=== PATIENT | female | born 1990 | race Caucasian/White ===

== ENCOUNTER 2021-07-24 10:04 | Emergency (ER) | payer OTHER ==
[~2021-07-24] VITALS: Ht 162.6 cm; Wt 59.1 kg
--- NOTE | 2021-07-24 10:05 | NUR ---
BIBA TO BED 05
--- NOTE | 2021-07-24 10:10 | NUR ---
PT IN GAWN AND IN BED.
--- NOTE | 2021-07-24 10:18 | NUR ---
PT WALKED TO THE BATHROOM FOR URINE SAMPLE.
[2021-07-24 10:35] VITALS: BP 114/73
[2021-07-24] MEDS ORDERED: ACETAMINOPHEN EXTRA STRENGTH 500 MG TAB PO ONE (10:35)
--- NOTE | 2021-07-24 10:40 | NUR ---
PT BIB [facility] C/O PT FOUND IN UNK PERSON BACK YARD STS TO O/PD S/P 5150 " GET THE FUCK AWAY, I'M GOING TO KILL MYSELF." NO TRAUMA NOTED. EMS STS PT IS HOMELESS. PT DENIES ANY PAIN. ER MD TO EUNICE. PT DENIES N/V/D; SKIN IS INTACT, PINK/WARM/DRY; AAOX4, PERRL, WITH EVEN AND STEADY GAIT; LUNGS CLEAR BL, BREATHING UNLABORED; HR EVEN AND REGULAR, BL PERIPHERAL PULSES PRESENT; BS ACTIVE X4, NO TENDERNESS TO PALPATION. PT DENIES ANY FEVER, CP, SOB, OR COUGH AT THIS TIME; PT STATES 0/10 PAIN AT THIS TIME; VSS; PATIENT POSITIONED FOR COMFORT; HOB ELEVATED; BEDRAILS UP X2; BED DOWN.
[2021-07-24 11:31] LABS: APPEARANCE,URINE CLEAR (CLEAR); BILIRUBIN,URINE NEGATIVE (NEGATIVE); COLOR,URINE YELLOW (YELLOW); LEUKOCYTE ESTERASE ,URINE NEGATIVE (NEGATIVE); NITRITE, URINE NEGATIVE (NEGATIVE); UGLUCOSE NEGATIVE (NEGATIVE)
[2021-07-24 11:36] LABS: BASOPHILS % (AUTO) 0.7 % (0.0-2.0); EOSINOPHILS # (AUTO) 0.1 K/uL (0-0.4); EOSINOPHILS % (AUTO) 1.3 % (0.0-4.0); HEMATOCRIT 36.6 % (36-48); HEMOGLOBIN 12.6 g/dL (12.0-16.0); LYMPHOCYTES # (AUTO) 1.1 K/uL (2.5-16.5); LYMPHOCYTES % (AUTO) 18.1 % (20.5-51.1); MEAN CORPUSCULAR HEMOGLOBIN 33 pg (27-31); MEAN CORPUSCULAR HGB CONC 35 g/dL (33-37); MEAN CORPUSCULAR VOLUME 94.4 fL (80-94); MONOCYTES # (AUTO) 0.8 K/uL (0.8-1.0); NEUTROPHILS % (AUTO) 66.9 % (42.2-75.2); PLATELET COUNT (AUTO) 297 K/uL (140-450); RED BLOOD CELL COUNT(AUTO) 3.87 MIL/uL (4.20-5.40); RED CELL DISTRIBUTION WIDTH 12.2 % (11.6-13.7)
[2021-07-24 11:45] LABS: BLOOD, URINE TRACE (NEGATIVE); RBC,URINE 0-5 /HPF (0-5); WBC,URINE 0-5 /HPF (0-5)
[2021-07-24 11:49] LABS: BARBITURATE, URINE NEGATIVE ng/ml (NEG <=200); BENZODIAZEPINE, URINE NEGATIVE ng/mL (NEG <=200); CANNABINOID, URINE NEGATIVE ng/mL (NEG <=50); COCAINE, URINE NEGATIVE ng/mL (NEG <=300); OPIATE, URINE NEGATIVE ng/mL (NEG <=2000); PHENCYCLIDINE SCREEN,URINE NEGATIVE ng/mL (NEG <=25)
--- NOTE | 2021-07-24 11:49 | NUR ---
PT IS EATING LUNCH.
[2021-07-24 12:06] LABS: ALBUMIN 3.5 g/dL (3.4-5.0); ANION GAP 11.1 (8-16); CARBON DIOXIDE 28.9 mmol/L (21-32); CREATININE 0.6 mg/dL (0.6-1.3); TOTAL BILIRUBIN 0.4 mg/dL (0.0-1.0)
--- NOTE | 2021-07-24 12:09 | NUR ---
PT FINISHED LUNCH, RESTING.
--- NOTE | 2021-07-24 14:30 | NUR ---
DR Dawkins TALKING WITH PT VIA IPAD.
[2021-07-24] MEDS ORDERED: OLANZapine 5 MG ODT PO ONE (15:15)
[2021-07-24] MEDS ORDERED: OLANZapine 5 MG ODT ONE (16:27)
--- NOTE | 2021-07-24 18:21 | NUR ---
Packet has been faxed to the following facilities Khanh Jacobson s/w Deisy Luis/Nitza S/W [facility]
--- NOTE | 2021-07-24 19:01 | NUR ---
PT IN BED EATHING DINNER.
--- NOTE | 2021-07-24 19:03 | NUR ---
Patient has been accepted at [facility] [address] [place] [id number] MD: Dr. Motley Unit: [facility] Room: 4-B Phone number fore report: [phone] Per Sugey at [facility], to give report after 19:30. S/W [place] in ER to give info
--- NOTE | 2021-07-24 19:30 | NUR ---
RESTING IN BED WITH EYES CLOSED
--- NOTE | 2021-07-24 20:05 | NUR ---
REPORT CALLED TO ENMANUEL URIAS AT [facility]
--- NOTE | 2021-07-24 22:25 | NUR ---
[facility] TRANSPORT AT BEDSIDE
[2021-07-24 22:30] VITALS: BP 90/46
--- NOTE | 2021-07-24 22:30 | NUR ---
Patient to transferred to [facility]. Receiving facility has accepting physician and available space. ER physician has signed transfer form. Patient or responsible republican has agreed to transfer and signed form. Patient belongings inventoried and will be sent with patient. Copy of nursing notes, lab reports, EKG, Physicians Orders and X-rays to be sent with patient. Report called to ENMANUEL URIAS at receiving facility.
--- NOTE | 2021-07-24 22:43 | NUR ---
PT TAKEN BY [facility] TRANSPORT TO [facility]
== END 2021-07-24 22:43 ==
LOC: MED 10:04
DX: F15.10 Other stimulant abuse, uncomplicated (principal); Z20.822 Contact with and (suspected) exposure to COVID-19; R51.9 Headache, unspecified
CPT/HCPCS: 36415; 80053; 80305; 81001; 81025; 85025; 87426; 99283; U0003